=== PATIENT | male | born 1960 | race Caucasian/White ===

== ENCOUNTER 2021-02-26 06:33 | Day surgery (SDC) | payer BC, SELFPAY ==
[2021-02-26] VITALS (10 sets, daily range): BP systolic 121–154; BP diastolic 84–108; PULSE 81–105; RESP 16–20; TEMP 35.4–36.3; O2SAT 94–98; BMI 26.4
[2021-02-26] MEDS: Lactated Ringers 1,000 ML 30 ML IV (07:20)
[2021-02-26] MEDS: Cefazolin 2 GM in 0.9% Normal Saline 100 ML IV (08:36)
--- NOTE | 2021-02-26 11:08 | OP.PCM_ITS ---
Report of Operation Date of Procedure: 02/26/21 Pre-Operative Diagnosis: Left ureteral calculi multiple and obstructive with hy dronephrosis, right ureteral calculi multiple obstructive hydronephrosis Post-Operative Diagnosis: The same plus left ureteral stricture severe Surgery/Procedure Performed:: Cystoscopy left retrograde pyelogram interpretation fluoroscopic good images, balloon dilation of left ureteral stricture, left ureteroscopy laser lithotripsy of multiple stones along the ureter and multiple strictures, left stent placement, Right retrograde pyelogram interpretation fluoroscopic images and right stent placement. Description of Surgical Findings:: This is a 60-year-old male was seen in the office after he came from the emergency room he is got bilateral stones in both the ureters causing obstruction so organ to proceed with treatment of the stones I decided to treat him in a staged fashion working to treat the left stones first but on the stent both sides and then he opining his second procedure to finish up the other side and even may be a second look given the complicated nature of the procedure. Patient was taken back to the operating room after smooth induction of general anesthesia went to the left side cannulated the left ureteral orifice with a Glidewire advanced a wire up into the kidney performed a retrograde pyelogram is taken contrast go up and then contrast squeak through narrow areas inside the ureter I took a film captured and saved it demonstrated the multiple areas of strictures and stones along the strictures. I then put a wire up the left side and then next to the wire went in with the ureteroscope as I was lasering the stones we had to switch out the first ureteroscope as a went bad and then with the switch out a second ureteroscope is also went bad and finally in the third ureteroscope the vision stayed clear And using ureteroscope lasered many stones along the course of the ureter as it was lasered I finally got the area over that was strictured lasered clear of stones so I thought it be safe to balloon dilate this and put a balloon dilator up and balloon dilated the stricture with a 15 Setswana 10 cm balloon dilator after balloon dilating this twice then went back in with a ureteroscope and lasered and finished lasering stones along the course of the ureter to I thought that lasered enough that the stone should pass but definitely will need a second look up on the left side as extensive amount of lasering at the be done probably took over an hour and a half of lasering., Active laser time was 1 hour 11 minutes on the laser machine but actually took a 2 hours to do the surgery on the left side. I then placed a stent on the left side we did a retrograde pyelogram to confirm the location of the stent I then went to the right side with the cystoscope cannulated the right ureteral orifice advanced up to the kidney performed a retrograde pyelogram there again multiple stone fragments along the course of the right ureter decided today not to do the right side since already spent 3 hours lasering the stones in the left side we will place a stent on the right side he want to come back for second procedure we will set him up outpatient for another procedure on the right side to laser the stones out and probably will have to do a second look on the left side to make sure the stones were lasered make sure the ureter is healing up from the stricture. Both stents were in place patient anesthetic was reversed taken back to the PACU in good condition. Surgeon: yanique Type of Anesthesia: General Drains: stent 6fr x 26 both sides Admit VTE Documentation VTE Present on Admission: No VTE Mechan Device Prophylaxis: SCD's VTE Pharm Prophylaxis ordered?: No
--- NOTE | 2021-02-26 11:08 | PCM.DC ---
Discharge Instructions Diet Discharge Diet: No restrictions Activity Discharge Activity: Return to Normal Activity and May Not Drive (while taking narcotic pain medications.) Dressing / Incision Call your doctor if you observe: Fever of 101 or Higher Follow Up Care Please Follow Up With: Gómez Llanos MD When: Call [phone] for an appointment Test Results: Test results from this visit will be discussed in further detail at your follow-up appointment, if applicable. Discharge Plan Admission Primary Reason for Your Visit: laser stones on left, right stent and retrograde Attending Provider: Gómez Llanos Primary Care Provider: Care Physician,No Primary Discharge Orders/Prescriptions Prescriptions: New cephalexin 500 mg capsule 500 mg PO BID Qty: 10 RF: 0 oxycodone-acetaminophen 5-325 mg tablet 1 tab PO Q6H PRN (Reason: pain) 7 Days Qty: 10 RF: 0 Continued oxycodone-acetaminophen 5-325 mg tablet 1 tab PO PRN PRN (Reason: Pain) RF: 0 ondansetron 4 mg tablet,disintegrating 4 mg PO PRN PRN (Reason: Nausea) RF: 0 Referrals / Follow Up: Gómez Llanos MD [STAFF PHYSICIAN] - Care Physician,No Primary [Primary Care Provider] - Disposition Disposition (needs filled in before D/C Order can be placed): Home, Self Care
[2021-02-26] MEDS: Lactated Ringers 1,000 ML 100 ML IV (12:33)
== END 2021-02-26 23:59 | disposition home or self-care (01) ==
LOC: SDC 06:39 → AC 06:39
PROVIDERS: Referring Provider Urology; Visit Provider Urology
PROC: 0TJ98ZZ Inspection of Ureter, Via Natural or Artificial Opening Endoscopic (ICD-10-PCS; CPT 52352; principal; 2021-02-26 08:40)
DX: N13.2 Hydronephrosis with renal and ureteral calculous obstruction (principal); Z87.442 Personal history of urinary calculi
CPT/HCPCS: 52356; 00873; 76000; 82360; J7120; C1726; C1769; C2617; J2405

== ENCOUNTER 2021-03-04 11:51 | Outpatient (CLI) | payer BC, SELFPAY ==
--- NOTE | 2021-03-04 12:11 | EKG12_ITS ---
Test Reason : PRE OP Blood Pressure : / mmHG Vent. Rate : 087 BPM Atrial Rate : 087 BPM P-R Int : 142 ms QRS Dur : 076 ms QT Int : 352 ms P-R-T Axes : 057 028 062 degrees QTc Int : 423 ms Normal sinus rhythm with sinus arrhythmia Normal ECG Confirmed by AMELIA AVILA, TAIWO ([id number]), slot editor CLEO LOCKETT ([id number]) on 03/05/2021 9:09:36 AM Referred By: Gómez Llanos Confirmed By:TAIWO CISNEROS MD
== END 2021-03-04 23:59 | disposition short-term general hospital (02) ==
LOC: PSN 11:52
PROVIDERS: Referring Provider Urology; Visit Provider Urology
DX: Z01.810 Encounter for preprocedural cardiovascular examination (principal)
CPT/HCPCS: 93005

== ENCOUNTER → 2021-10-27 | Outpatient (CLI) | payer BC, SELFPAY ==
--- NOTE | 2021-10-27 14:55 | RAD_ITS ---
INDICATION: CALCULUS OF KIDNEY, LEFT SIDE EXAMINATION/TECHNIQUE: X-RAY - XR Abdomen 1 View COMPARISON: 12/15/2016 FINDINGS: BOWEL GAS PATTERN: Non-obstructive. No bowel or stomach distention. FREE AIR: Not assessed on a single supine view. ORGANOMEGALY: Not seen. CALCIFICATIONS: Calcifications visualized superimposed over bilateral renal beds consistent with renal stones. LOWER CHEST: No acute pathology. BONES AND SOFT TISSUES: No acute pathology. RAD/Abdomen Single View IMPRESSION: Calcifications visualized superimposed over bilateral renal beds consistent with renal stones, these are suboptimally evaluated due to overlying bowel gas.. Electronically Signed: Jose Villarreal MD at 16:38 EDT ,
== END | disposition home or self-care (01) ==
LOC: RAD 14:54
PROVIDERS: Referring Provider Urology; Visit Provider Urology
DX: N20.0 Calculus of kidney (principal)
CPT/HCPCS: 74018

== ENCOUNTER → 2021-11-24 | Outpatient (CLI) | payer BC, SELFPAY ==
--- NOTE | 2021-11-24 11:25 | RAD_ITS ---
INDICATION: CALCULUS OF KIDNEY EXAMINATION/TECHNIQUE: X-RAY - XR Abdomen 1 View COMPARISON: 10/27/2021 FINDINGS: BOWEL GAS PATTERN: Non-obstructive. No bowel or stomach distention. Large amount of retained stool in colon. FREE AIR: Not assessed on a single supine view. ORGANOMEGALY: Not seen. CALCIFICATIONS: Multiple stones project over the left kidney, largest measuring 1 cm. LOWER CHEST: No acute pathology. BONES AND SOFT TISSUES: No acute pathology. RAD/Abdomen Single View IMPRESSION: Multiple stones project over the left kidney, largest measuring 1 cm. Electronically Signed: Desean Iverson MD at 17:02 EDT ,
[2021-11-24 12:32] LABS: Hematocrit 49.2 % (40-54); Hemoglobin 16.1 g/dL (13.0-16.5); Mean Corp Hgb Conc 32.7 g/dL (32-36); Mean Corpuscular Hgb 30.3 pg (27.0-32.0); Mean Corpuscular Volume 92.5 fL (80-94); Mean Platelet Vol. 10.6 fl (6.2-12.0); Platelet Count 186 K/mm3 (150-450); RBC Distribution Width CV 12.9 % (11.6-14.6); RBC Distribution Width SD 43.6 fl (35.1-43.9); Red Blood Count 5.32 M/mm3 (4.6-6.2); White Blood Count 4.3 K/mm3 (4.4-11.0)
[2021-11-24 13:07] LABS: Anion Gap 7 (5-15); BUN 27 mg/dL (7-18); Calcium,Total 9.2 mg/dL (8.5-10.1); Chloride 105 mmol/L (98-107); Creatinine, Serum 1.04 mg/dL (0.70-1.30); EST Glomerular Filtration Rate 77 mL/min (>60); Est Glom Filt Rate - Afr Amer 93 mL/min (>60); Glucose 99 mg/dL (74-106); Potassium 4.9 mmol/L (3.5-5.1); Sodium Level 138 mmol/L (136-145)
== END | disposition home or self-care (01) ==
LOC: RAD 11:20
PROVIDERS: Referring Provider Urology; Visit Provider Urology
DX: Z01.812 Encounter for preprocedural laboratory examination (principal); N20.0 Calculus of kidney
CPT/HCPCS: 36415; 74018; 80048; 85027